=== PATIENT | female | born 1990 | race Caucasian/White ===

== ENCOUNTER 2017-07-15 18:57 | Inpatient (IN) | payer OTHER ==
[2017-07-15] MEDS ORDERED: Terbutaline 1 MG/ML SDV SUBCUT PRN (19:37)
[2017-07-15] MEDS ORDERED: Sodium Chloride 0.9% 2.5 ML Syringe FLUSH PRN (19:44)
[2017-07-15] MEDS ORDERED: Methylergonovine 0.2 MG/1 ML Amp IM PRN (19:44)
[2017-07-15] MEDS ORDERED: Carboprost Tromethamine 250 MCG/1 ML Amp IM PRN (19:44)
[2017-07-15] MEDS ORDERED: Sodium Chloride 0.9% 10 ML Syringe FLUSH PRN (19:44)
[2017-07-15] MEDS ORDERED: Water For Irrigation,Sterile 1,000 ML Container IRR PRN (19:44)
[2017-07-15] MEDS ORDERED: Misoprostol 200 MCG Tab PO PRN (19:44)
[2017-07-15] MEDS ORDERED: Tranexamic Acid 1,000 MG in Sodium Chloride 0.9% 100 ML IV PRN (19:44)
[2017-07-15] MEDS ORDERED: Nalbuphine 10 MG/1 ML Vial IVPUSH PRN (19:44)
[2017-07-15] MEDS ORDERED: Lidocaine 1% 50 ML MDV INJECT PRN (19:44)
[2017-07-15] MEDS ORDERED: Oxytocin/0.9 % Sodium Chloride 30 UNIT/500 ML BAG IV SCH (19:45)
[2017-07-15] MEDS: Lactated Ringers 1,000 ML IV SCH (21:08)
[2017-07-16] MEDS: Lactated Ringers 1,000 ML IV SCH (01:30)
--- NOTE | 2017-07-16 01:43 | PCM.PREANE ---
Preanesthetic Assessment - Anesthesia/Transfusion/Family Hx Anesthesia History: Prior Anesthesia Without Reaction - Review of Systems General: No Symptoms Pulmonary: No Symptoms Cardiovascular: No Symptoms Gastrointestinal: No Symptoms Neurological: No Symptoms Other: Reports: None - Physical Assessment Height: 5 ft 7 in Weight: 70.76 kg ASA Class: 2 Mental Status: Alert & Oriented x3 Airway Class: Mallampati = 2 Dentition: Reports: Normal Dentition Thyro-Mental Finger Breadths: 3 Mouth Opening Finger Breadths: 3 ROM/Head Extension: Full Lungs: Clear to Auscultation, Normal Respiratory Effort Cardiovascular: Regular Rate, Regular Rhythm - Lab Values: Laboratory Last Values WBC 12.51 K/uL (4.0-11.0) H 07/15/17 20:04 RBC 4.05 M/uL (4.30-5.90) L 07/15/17 20:04 Hgb 12.3 g/dL (12.0-16.0) 07/15/17 20:04 Hct 35.4 % (36.0-46.0) L 07/15/17 20:04 MCV 87.4 fL (80.0-98.0) 07/15/17 20:04 MCH 30.4 pg (27.0-32.0) 07/15/17 20:04 MCHC 34.7 g/dL (31.0-37.0) 07/15/17 20:04 RDW Std Deviation 41.0 fl (28.0-62.0) 07/15/17 20:04 RDW Coeff of Carlee 13 % (11.0-15.0) 07/15/17 20:04 Plt Count 203 K/uL (150-400) 07/15/17 20:04 MPV 9.90 fL (7.40-12.00) 07/15/17 20:04 Nucleated RBC % 0.0 /100WBC 07/15/17 20:04 Nucleated RBCs # 0 K/uL 07/15/17 20:04 Blood Type B POSITIVE 07/15/17 20:04 Antibody Screen NEGATIVE 07/15/17 20:04 - Allergies Allergies/Adverse Reactions: Allergies Allergy/AdvReac Type Severity Reaction Status Date / Time No Known Allergies Allergy Verified 04/20/14 17:31 - Acknowledgements Anesthesia Type Planned: Epidural Pt an Appropriate Candidate for the Planned Anesthesia: Yes Alternatives and Risks of Anesthesia Discussed w Pt/Guardian: Yes Pt/Guardian Understands and Agrees with Anesthesia Plan: Yes PreAnesthesia Questionnaire HEENT History: Reports: Impaired Vision, Other (See Below) Other HEENT History: wears contacts and glasses Cardiovascular History: Reports: None Respiratory History: Reports: None Gastrointestinal History: Reports: GERD, Other (See Below) Other Gastrointestinal History: mild heartburn with Genitourinary History: Reports: None [employer] History: Reports: : 3 Para: 1 LMP (Approximate): Other OB/BYN History: D and C Musculoskeletal History: Reports: None Neurological History: Reports: None Psychiatric History: Reports: None Endocrine/Metabolic History: Reports: None Hematologic History: Reports: None Immunologic History: Reports: None Oncologic (Cancer) History: Reports: None Dermatologic History: Reports: None - Infectious Disease History Infectious Disease History: Reports: Chicken Pox - Past Surgical History HEENT Surgical History: Reports: None GI Surgical History: Reports: None Female Surgical History: Reports: D&C - HOME MEDS Home Medications: Home Meds Vit No.130/Iron/FA [ Vitamins] 1 tab PO DAILY 04/20/14 [History ] Acetaminophen/Codeine [Tylenol with Codeine No.3 300MG/30MG] 1 - 2 tab PO Q4H PRN #20 tablet 05/16/14 [Rx] Doxycycline [Vibramycin] 100 mg PO Q12H #2 vial 05/16/14 [Rx] - CURRENT (IN HOUSE) MEDS Current Meds: Current Medications Carboprost Tromethamine (Hemabate Ds) 250 mcg IM ASDIRECTED PRN PRN Reason: Post Hemorrhage Lactated Ringer's (Ringers, Lactated) 1,000 mls @ 150 mls/hr IV ASDIRECTED LINDA Last Admin: 07/16/17 01:30 Dose: 999 mls/hr Oxytocin/Sodium Chloride (Oxytocin 30 Unit/500 Ml-Ns) 30 unit in 500 mls @ 2 mls/hr IV TITRATE LINDA; Protocol Last Titration: 07/16/17 01:30 Dose: 10 munits/min, 10 mls/hr Tranexamic Acid 1,000 mg/ (Sodium Chloride) 110 mls @ 660 mls/hr IV ONETIME PRN PRN Reason: Bleeding Lidocaine HCl (Xylocaine 1%) 50 ml INJECT .ONCE PRN PRN Reason: Laceration repair Methylergonovine Maleate (Methergine) 0.2 mg IM ASDIRECTED PRN PRN Reason: Post Hemorrhage Misoprostol (Cytotec) 200 mcg PO .ONCE PRN PRN Reason: Post Hemorrhage Nalbuphine HCl (Nubain) 10 mg IVPUSH Q1H PRN PRN Reason: Pain (severe 7-10) Sodium Chloride (Saline Flush) 10 ml FLUSH ASDIRECTED PRN PRN Reason: Keep Vein Open Sodium Chloride (Saline Flush) 2.5 ml FLUSH ASDIRECTED PRN PRN Reason: Keep Vein Open Sterile Water (Sterile Water For Irrigation) 1,000 ml IRR ASDIRECTED PRN PRN Reason: delivery Terbutaline Sulfate (Brethine) 0.25 mg SUBCUT ASDIRECTED PRN PRN Reason: Tacysystole
[2017-07-16] MEDS ORDERED: Bupivacaine 0.5% 10 ML SDV ONE ×2 (02:25→02:40)
[2017-07-16] MEDS ORDERED: ePHEDrine 50 MG/ML SDV ONE (02:48)
[2017-07-16] MEDS ORDERED: Lanolin 100% Cream 7 GM Tube TOP PRN (04:02)
[2017-07-16] MEDS ORDERED: Ibuprofen 400 MG Tab PO PRN (04:02)
[2017-07-16] MEDS ORDERED: Docusate Sodium 100 MG Cap PO PRN (04:02)
[2017-07-16] MEDS ORDERED: Bisacodyl 10 MG Supp RECTAL PRN (04:02)
[2017-07-16] MEDS ORDERED: Acetaminophen 500 MG Tab PO PRN ×2 (04:02)
[2017-07-16] MEDS ORDERED: oxyCODONE 5 MG Tab PO PRN (04:02)
[2017-07-16] MEDS ORDERED: Witch Hazel Medicated Pads 40/Jar TOP PRN (04:02)
[2017-07-16] MEDS ORDERED: Benzocaine/Menthol 20%-0.5% Spray 78 GM Cannister TOP PRN (04:02)
--- NOTE | 2017-07-16 07:37 | OR ---
SURGEON: Eduarda Barba MD DATE OF PROCEDURE: 07/16/2017 PREOPERATIVE DIAGNOSES: 1. Term at 40 weeks and 1 day. 2. Postdates induction of labor with advanced dilatation. POSTOPERATIVE DIAGNOSES: 1. Term at 40 weeks and 1 day. 2. Postdates induction of labor with advanced dilatation. 3. Delivered. PROCEDURE: 1. Induction of labor. 2. Spontaneous vaginal delivery. 3. Repair of second-degree perineal laceration. ANESTHESIA: Epidural. ESTIMATED BLOOD LOSS: 200 mL. COMPLICATIONS: None. DISPOSITION: Mother and baby stable in Labor and Delivery room, bonding. FINDINGS: Male , weight pending, 9 and 9 at 1 and 5 minutes respectively. Grossly normal placenta with 3-vessel cord. Second-degree perineal laceration. BRIEF HISTORY: Lee Ann is a 26-year-old patient of [facility] whom I took care of this weekend as Dr. Hughes, her primary provider is away. She is a G3, P1-0-1-1 who was admitted at 40 weeks gestation for postdates induction of labor with advanced dilatation. care was uncomplicated. GBS negative. Induction of labor was performed with Oxytocin followed by artificial rupture of membrane with clear amniotic fluid noted. The patient requested and received epidural for pain management. Thereafter, she progressed to full dilatation and commenced active pushing. Pushing well and bringing the baby's head down to +4 station, she was set up for delivery modified dorsal lithotomy position. heart tracing was category 2. DESCRIPTION OF PROCEDURE: She had a spontaneous vaginal delivery of a live male in direct occipital anterior position, no nuchal cord, clear amniotic fluid at delivery. Anterior and posterior shoulders and the rest of the baby were delivered without difficulty. Baby was vigorous and cried spontaneously at and was delivered onto the maternal abdomen with the nursery nurse in attendance, stimulating and drying him. With delivery of the infant, oxytocin infusion was converted to titration for active management of third stage of labor. Delayed cord clamping was performed and the cord was subsequently cut by the father of the baby. Cord blood and gas samples were obtained. Placenta was delivered by controlled cord traction, appeared to be complete and intact. Vigorous uterine massage was performed. The uterus was found to be well contracted below the umbilicus. Examination of the perineum revealed a second- degree laceration, which was repaired in the routine technique using 2-0 Vicryl in 3 layers. It was hemostatic post repair. The patient tolerated the procedure well. Sponge, instrument, and needle counts were correct at the end of the delivery. SHERRY / ALEXANDRA /[id number] MTDD
[2017-07-16] MEDS: Ibuprofen 800 MG Tab PO PRN ×2 (07:43→23:11)
--- NOTE | 2017-07-16 10:11 | PCM48HPAN ---
Post Anesthesia Note - EVALUATION WITHIN 48HRS OF ANESTHETIC Vital Signs in Normal Range: Yes Patient Participated in Evaluation: Yes Respiratory Function Stable: Yes Airway Patent: Yes Cardiovascular Function Stable: Yes Hydration Status Stable: Yes Pain Control Satisfactory: Yes Nausea and Vomiting Control Satisfactory: Yes Mental Status Recovered: Yes Resp Rate: 20
--- NOTE | 2017-07-17 08:18 | PCM.DCSUM1 ---
Discharge Summary - Hospital Course Free Text/Narrative:: Discharge home with . Follow up 6 weeks for post or sooner if needed. - Discharge Data Discharge Date: 07/17/17 Discharge Disposition: Home, Self-Care 01 Condition: Good - Patient Instructions Diet: Usual Diet as Tolerated Activity: As Tolerated, No Strenuous Activities, Rest and Relax Today Driving: May Drive Today Showering/Bathing: May Shower Notify Provider of: Fever, Increased Pain, Swelling and Redness, Nausea and/or Vomiting Other/Special Instructions: Discharge home with infant. Follow up 6 weeks for post or sooner if needed. - Discharge Plan Home Medications: Home Meds Vit No.130/Iron/FA [ Vitamins] 1 tab PO DAILY 04/20/14 [History ] Acetaminophen/Codeine [Tylenol with Codeine No.3 300MG/30MG] 1 - 2 tab PO Q4H PRN #20 tablet 05/16/14 [Rx] Doxycycline [Vibramycin] 100 mg PO Q12H #2 vial 05/16/14 [Rx] - General Info Date of Service: 07/17/17 Functional Status: Reports: Pain Controlled, Tolerating Diet, Ambulating, Urinating - Review of Systems General: Reports: No Symptoms HEENT: Reports: No Symptoms Pulmonary: Reports: No Symptoms Cardiovascular: Reports: No Symptoms Gastrointestinal: Reports: No Symptoms Genitourinary: Reports: No Symptoms Musculoskeletal: Reports: No Symptoms Skin: Reports: No Symptoms Neurological: Reports: No Symptoms Psychiatric: Reports: No Symptoms - Patient Data Vitals - Most Recent: Last Vital Signs Temp 36.6 C 07/17/17 04:00 Pulse 64 07/17/17 04:00 Resp 16 07/17/17 04:00 BP 108/60 07/17/17 04:00 Pulse Ox 95 07/17/17 04:00 Weight - Most Recent: 70.76 kg Lab Results - Last 24 hrs: Laboratory Results - last 24 hr 07/16/17 Range/Units 03:12 Cord ABG pH 7.232 (7.18-7.38) Cord ABG Base Excess -9 (-10--2) Cord VBG pH 7.316 (7.25-7.45) Cord VBG Base Excess -7 (-10--2) Med Orders - Current: Current Medications Acetaminophen (Tylenol Extra Strength) 500 mg PO Q4H PRN PRN Reason: Pain Acetaminophen (Tylenol Extra Strength) 1,000 mg PO Q4H PRN PRN Reason: Pain Last Admin: 07/16/17 10:55 Dose: 1,000 mg Benzocaine/Menthol (Dermoplast Pain Relief 20%-0.5% [place]) 78 gm TOP ASDIRECTED PRN PRN Reason: Perineal Comfort Measure Last Admin: 07/16/17 19:54 Dose: 1 spray Bisacodyl (Dulcolax) 10 mg RECTAL .ONCE PRN PRN Reason: Constipation Docusate Sodium (Colace) 100 mg PO BID PRN PRN Reason: Constipation Last Admin: 07/16/17 19:56 Dose: 100 mg Emollient Ointment (Lansinoh Hpa) 0 gm TOP ASDIRECTED PRN PRN Reason: Sore Nipples Ibuprofen (Motrin) 400 mg PO Q4H PRN PRN Reason: Pain Ibuprofen (Motrin) 800 mg PO Q6H PRN PRN Reason: Pain Last Admin: 07/16/17 23:11 Dose: 800 mg Oxycodone HCl (Oxycodone) 5 mg PO Q2H PRN PRN Reason: Pain Witch Janet (Tucks) 1 pad TOP ASDIRECTED PRN PRN Reason: comfort care Last Admin: 07/16/17 19:55 Dose: 1 pad Discontinued Medications Bupivacaine HCl (Sensorcaine-Mpf 0.5%) Confirm Administered Dose 10 ml .ROUTE .STK-MED ONE Stop: 07/16/17 02:26 Bupivacaine HCl (Sensorcaine-Mpf 0.5%) Confirm Administered Dose 10 ml .ROUTE .STK-MED ONE Stop: 07/16/17 02:41 Carboprost Tromethamine (Hemabate Ds) 250 mcg IM ASDIRECTED PRN PRN Reason: Post Hemorrhage Ephedrine Sulfate (Ephedrine Sulfate) Confirm Administered Dose 50 mg .ROUTE .STK-MED ONE Stop: 07/16/17 02:49 Lactated Ringer's (Ringers, Lactated) 1,000 mls @ 150 mls/hr IV ASDIRECTED LINDA Last Admin: 07/16/17 01:30 Dose: 999 mls/hr Oxytocin/Sodium Chloride (Oxytocin 30 Unit/500 Ml-Ns) 30 unit in 500 mls @ 2 mls/hr IV TITRATE LINDA; Protocol Last Titration: 07/16/17 02:35 Dose: 10 munits/min, 10 mls/hr Tranexamic Acid 1,000 mg/ (Sodium Chloride) 110 mls @ 660 mls/hr IV ONETIME PRN PRN Reason: Bleeding Fentanyl/Bupivacaine HCl ([id number]-[id number]-Xk 2 Mcg/Ml-0.125%) Confirm Administered Dose 100 mls @ as directed .[facility] ONE Stop: 07/16/17 01:49 Lidocaine HCl (Xylocaine 1%) 50 ml INJECT .ONCE PRN PRN Reason: Laceration repair Methylergonovine Maleate (Methergine) 0.2 mg IM ASDIRECTED PRN PRN Reason: Post Hemorrhage Misoprostol (Cytotec) 200 mcg PO .ONCE PRN PRN Reason: Post Hemorrhage Nalbuphine HCl (Nubain) 10 mg IVPUSH Q1H PRN PRN Reason: Pain (severe 7-10) Sodium Chloride (Saline Flush) 10 ml FLUSH ASDIRECTED PRN PRN Reason: Keep Vein Open Sodium Chloride (Saline Flush) 2.5 ml FLUSH ASDIRECTED PRN PRN Reason: Keep Vein Open Sterile Water (Sterile Water For Irrigation) 1,000 ml IRR ASDIRECTED PRN PRN Reason: delivery Terbutaline Sulfate (Brethine) 0.25 mg SUBCUT ASDIRECTED PRN PRN Reason: Tacysystole - Exam General: Reports: Alert, Oriented, Cooperative, No Acute Distress Lungs: Reports: Clear to Auscultation, Normal Respiratory Effort Cardiovascular: Reports: Regular Rate, Regular Rhythm, No Murmurs GI/Abdominal Exam: Soft, Non-Tender, No Distention (Female) Exam: Vaginal Bleeding Rectal (Female) Exam: Deferred Back Exam: Reports: Normal Inspection, Full Range of Motion Extremities: Normal Inspection, Normal Range of Motion, Non-Tender, No Pedal Edema, Normal Capillary Refill Skin: Reports: Warm, Dry, Intact Wound/Incisions: Reports: Healing Well Neurological: Reports: No New Focal Deficit, Normal Gait, Normal Speech, Normal Tone, Strength Equal Bilateral Psy/Mental Status: Reports: Alert, Normal Affect, Normal Mood
[2017-07-17 11:26] VITALS: BP 99/55
== END 2017-07-17 12:10 | disposition home or self-care (01) | DRG 775 ==
LOC: MW.OBCHECK 18:57 → MW.OB 18:58 → MW.OBCHECK 19:44 → MW.OB 19:44 → OBSVTOIN 07-16 03:12 → MW.OB 07-16 10:54
PROVIDERS: ADMIT Obstetrics & Gynecology; ATTEND Obstetrics & Gynecology
PROC: 10E0XZZ Delivery of Products of Conception, External Approach (ICD-10-PCS; principal; 2017-07-16)
PROC: 0KQM0ZZ Repair Perineum Muscle, Open Approach (ICD-10-PCS; 2017-07-16)
PROC: 3E033VJ Introduction of Other Hormone into Peripheral Vein, Percutaneous Approach (ICD-10-PCS; 2017-07-16)
PROC: 10907ZC Drainage of Amniotic Fluid, Therapeutic from Products of Conception, Via Natural or Artificial Opening (ICD-10-PCS; 2017-07-16)
DX: O48.0 Post-term pregnancy (principal); O34.33 Maternal care for cervical incompetence, third trimester; O70.1 Second degree perineal laceration during delivery; Z3A.40 40 weeks gestation of pregnancy; Z37.0 Single live birth
CPT/HCPCS: 36415; 51702; 59025; 59409; 82803; 85027; 86850; 86900; 86901; A9270-GY; J2590; J7120